=== PATIENT | male | born 1960 | race Caucasian/White ===

== ENCOUNTER 2025-02-08 15:19 | Inpatient (IN) | payer SELFPAY ==
[2025-02-08 15:22] VITALS: BP 141/92; PULSE 71; RESP 17; TEMP 36.6; O2SAT 98
--- NOTE | 2025-02-08 15:23 | ED.C_ITS ---
HPI - Psych 2 General: Chief Complaint: Psychiatric Symptoms Stated Complaint: 96 Time Seen by Provider: 02/08/25 15:21 Source: patient and police Limitations: no limitations History of Present Illness: 64-year-old male is here with police und er 96-hour hold patient had made a suicide attempt he had got a gun of his girlfriend and taken the gun away from him. He stated he wanted to shoot himself to his girlfriend she fell out and I 6-hour paperwork. Patient here is being avoidant will give me much history. Associated symptoms: Reports depression and suicidal ideation Related Data Allergies Allergy/AdvReac Type Severity Reaction Status Date / Time No Known Allergies Allergy Verified 02/08/25 15:30 Review of Systems 2 Const: Denies: fever(s), chills, body aches or change in appetite ENMT: Denies: throat pain or dental pain Card: Denies: chest pain Resp: Denies: dyspnea GI: Denies: abdominal pain, nausea, vomiting or diarrhea Musc: Denies: neck pain or back pain Skin/Breast: Denies: rash Neuro: Denies: headache(s) Psych: Reports: depression and suicidal ideation Physical Exam 2 Const: COMMON NORMALS: no acute distress, patient oriented x3 and healthy appearing HENMT: COMMON NORMALS: normocephalic and atraumatic HEAD & SCALP: n ormocephalic and atraumatic Eye: COMMON NORMALS: conjunctivae normal CONJUNCTIVA: Yes conjunctivae normal Chest: COMMONS NORMALS: normal inspection of the chest Resp: COMMON NORMALS: normal respiratory effort Cardio: COMMON NORMALS: regular rate RATE: regular rate Extremity: COMMON NORMALS: normal to inspection and full ROM Neuro: COMMON NORMALS: patient oriented x3, moves all extremities and no focal motor deficits Psych: COMMON NORMALS: mental status grossly normal and cooperative MOOD & AFFECT: Yes depressed mood THOUGHT CONTENT: Yes Suicidality present Skin: COMMON NORMALS: no rashes or lesions noted and no wounds GENERAL SKIN EXAM: no rashes or lesions noted Course 2 Vital Signs: Vital signs: Vital Signs Temperature 97.8 F 02/08/25 15:22 Pulse Rate 71 02/08/25 15:22 Respiratory Rate 17 02/08/25 15:22 Blood Pressure 141/92 02/08/25 15:22 Pulse Oximetry 98 02/08/25 15:22 Oxygen Delivery Me thod Room Air 02/08/25 15:22 MDM - Psych Medical Decision Making Patient presents from a 96-hour hold for suicidal ideations he is medically cleared I spoke to psychiatrist will admit here. Medical Records I reviewed the patient's medical records. Lab Data I reviewed the patient's lab results. 02/08/25 15:31 02/08/25 15:31 Laboratory Results WBC 8.80 10^3/uL (3.29-11.43) 02/08/25 15:31 RBC 5.51 10^6/uL (3.85-5.65) 02/08/25 15:31 Hgb 15.60 g/dL (11.27-16.99) 02/08/25 15:31 Hct 46.5 % (37-53) 02/08/25 15:31 MCV 84.4 fl (82-101) 02/08/25 15:31 MCH 28.3 pg (27-33) 02/08/25 15: MCHC 33.5 g/dL (30-55) 02/08/25 15:31 RDW 16.6 % (12.1-15.1) H 02/08/25 15:31 Plt Count 289 10^3/cmm (157-399) 02/08/25 15:31 MPV 10.0 fL (7.4-10.4) 02/08/25 15:31 Neut % (Auto) 50.7 % 02/08/25 15:31 Lymph % (Auto) 35.1 % 02/08/25 15:31 Russell % (Auto) 8.1 % 02/08/25 15:31 Eos % (Auto) 4.4 % 02/08/25 15:31 Baso % (Auto) 1.5 % 02/08/25 15:31 Neut # (Auto) 4.46 10^3/uL (1.8-7.7) 02/08/25 15:31 Lymph # (Auto) 3.1 10^3/uL (0.8-4.8) 02/08/25 15:31 Russell # (Auto) 0.7 10^3/uL (0.2-0.9) 02/08/25 15:31 Eos # (Auto) 0.4 10^3/uL (0.0-0.8) 02/08/25 15:31 Baso # (Auto) 0.1 10^3/uL (0.0-0.1) 02/08/25 15:31 Nucleated RBC % (auto) 0 % 02/08/25 15:31 Nucleated RBCs # 0.0 /100WBC 02/08/25 15:31 Sodium 135 mmol/L (136-145) L 02/08/25 15:31 Potassium 4.3 mmol/L (3.5-5.1) 02/08/25 15:31 Chloride 101 mmol/L (98-107) 02/08/25 15:31 Carbon Dioxide 23 mmol/L (22-29) 02/08/25 15:31 Anion Gap 15.3 (5-19) 02/08/25 15:31 BUN 8 mg/dL (8-23) 02/08/25 15:31 Creatinine 0.6 mg/dL (0.7-1.2) L 02/08/25 15:31 GFR Calculation 136.1 mL/min (90-130) H 02/08/25 15:31 Glucose 93 mg/dL (65-115) 02/08/25 15:31 Calculated Osmolality 278 mOsm/kg (285-295) L 02/08/25 15:31 Calcium 9.4 mg/dL (8.5-10.5) 02/08/25 15:31 Total Bilirubin 0.4 mg/dL (0.15-1.2) 02/08/25 15:31 AST 17 U/L (0-40) 02/08/25 15:31 ALT 15 U/L (0-41) 02/08/25 15:31 Alkaline Phosphatase 84 U/L (40-130) 02/08/25 15:31 Total Protein 7.6 g/dL (6.6-8.7) 02/08/25 15:31 Albumin 4.2 g/dL (3.5-5.2) 02/08/25 15: Globulin 3.4 g/dL (1.3-4.6) 02/08/25 15:31 Salicylates < 0.3 mg/dL (3-10) L 02/08/25 15:31 Acetaminophen < 5.0 ug/mL (10-30) L 02/08/25 15:31 Ethyl Alcohol < 10 mg/dL (0-10) 02/08/25 15:31 All radiology interpretation(s) finalized by discharge Discharge Plan Discharge Patient Disposition: Admitted As Inpatient Clinical Impression: Suicidal ideation Condition: Stable Coding Level of Care Code ED Assistant Golf Course Superintendent for Amandeep Vital
--- NOTE | 2025-02-08 15:23 | W.ED.PSYCHS ---
HPI - Psych General: Chief Complaint: Psychiatric Symptoms Stated Complaint: 96 Time Seen by Provider: 02/08/25 15:21 Source: patient and police Limitations: no limitations History of Present Illness: 64-year-old male is here with police under 96-hour hold patient had made a suicide attempt he had got a gun of his girlfriend and taken the gun away from him. He stated he wanted to shoot himself to his girlfriend she fell out and I 6-hour paperwork. Patient here is being avoidant will give me much history. Associated symptoms: Reports depression and suicidal ideation Related Data Allergies Allergy/AdvReac Type Severity Reaction Status Date / Time No Known Allergies Allergy Verified 02/08/25 15:30 Review of Systems Const: Denies: fever(s), chills, body aches or change in appetite ENMT: Denies: throat pain or dental pain Card: Denies: chest pain Resp: Denies: dyspnea GI: Denies: abdominal pain, nausea, vomiting or diarrhea Musc: Denies: neck pain or back pain Skin/Breast: Denies: rash Neuro: Denies: headache(s) Psych: Reports: depression and suicidal ideation Physical Exam Const: COMMON NORMALS: no acute distress, patient oriented x3 and healthy appearing HENMT: COMMON NORMALS: normocephalic and atraumatic HEAD & SCALP: normocephalic and atraumatic Eye: COMMON NORMALS: conjunctivae normal CONJUNCTIVA: Yes conjunctivae normal Chest: COMMONS NORMALS: normal inspection of the chest Resp: COMMON NORMALS: normal respiratory effort Cardio: COMMON NORMALS: regular rate RATE: regular rate Extremity: COMMON NORMALS: normal to inspection and full ROM Neuro: COMMON NORMALS: patient oriented x3, moves all extremities and no focal motor deficits Psych: COMMON NORMALS: mental status grossly normal and cooperative MOOD & AFFECT: Yes depressed mood THOUGHT CONTENT: Yes Suicidality present Skin: COMMON NORMALS: no rashes or lesions noted and no wounds GENERAL SKIN EXAM: no rashes or lesions noted Course Vital Signs: Vital signs: Vital Signs Temperature 97.8 F 02/08/25 15:22 Pulse Rate 71 02/08/25 15:22 Respiratory Rate 17 02/08/25 15:22 Blood Pressure 141/92 02/08/25 15:22 Pulse Oximetry 98 02/08/25 15:22 Oxygen Delivery Me thod Room Air 02/08/25 15:22 MDM - Psych Medical Decision Making Patient presents from a 96-hour hold for suicidal ideations he is medically cleared I spoke to psychiatrist will admit here. Medical Records I reviewed the patient's medical records. Lab Data I reviewed the patient's lab results. 02/08/25 15:31 02/08/25 15:31 Laboratory Results WBC 8.80 10^3/uL (3.29-11.43) 02/08/25 15: RBC 5.51 10^6/uL (3.85-5.65) 02/08/25 15: Hgb 15.60 g/dL (11.27-16.99) 02/08/25 15: Hct 46.5 % (37-53) 02/08/25 15: MCV 84.4 fl (82-101) 02/08/25 15: MCH 28.3 pg (27-33) 02/08/25 15: MCHC 33.5 g/dL (30-55) 02/08/25 15: RDW 16.6 % (12.1-15.1) H 02/08/25 15: Plt Count 289 10^3/cmm (157-399) 02/08/25 15: MPV 10.0 fL (7.4-10.4) 02/08/25 15: Neut % (Auto) 50.7 % 02/08/25 15: Lymph % (Auto) 35.1 % 02/08/25 15: Eagle % (Auto) 8.1 % 02/08/25 15: Eos % (Auto) 4.4 % 02/08/25 15:31 Baso % (Auto) 1.5 % 02/08/25 15:31 Neut # (Auto) 4.46 10^3/uL (1.8-7.7) 02/08/25 15:31 Lymph # (Auto) 3.1 10^3/uL (0.8-4.8) 02/08/25 15:31 Eagle # (Auto) 0.7 10^3/uL (0.2-0.9) 02/08/25 15: Eos # (Auto) 0.4 10^3/uL (0.0-0.8) 02/08/25 15:31 Baso # (Auto) 0.1 10^3/uL (0.0-0.1) 02/08/25 15: Nucleated RBC % (auto) 0 % 02/08/25 15: Nucleated RBCs # 0.0 /100WBC 02/08/25 15:31 Sodium 135 mmol/L (136-145) L 02/08/25 15: Potassium 4.3 mmol/L (3.5-5.1) 02/08/25 15: Chloride 101 mmol/L (98-107) 02/08/25 15: Carbon Dioxide 23 mmol/L (22-29) 02/08/25 15: Anion Gap 15.3 (5-19) 02/08/25 15: BUN 8 mg/dL (8-23) 02/08/25 15: Creatinine 0.6 mg/dL (0.7-1.2) L 02/08/25 15:31 GFR Calculation 136.1 mL/min (90-130) H 02/08/25 15: Glucose 93 mg/dL (65-115) 02/08/25 15: Calculated Osmolality 278 mOsm/kg (285-295) L 02/08/25 15: Calcium 9.4 mg/dL (8.5-10.5) 02/08/25 15: Total Bilirubin 0.4 mg/dL (0.15-1.2) 02/08/25 15:31 AST 17 U/L (0-40) 02/08/25 15: ALT 15 U/L (0-41) 02/08/25 15:31 Alkaline Phosphatase 84 U/L (40-130) 02/08/25 15:31 Total Protein 7.6 g/dL (6.6-8.7) 02/08/25 15: Albumin 4.2 g/dL (3.5-5.2) 02/08/25 15: Globulin 3.4 g/dL (1.3-4.6) 02/08/25 15:31 Salicylates < 0.3 mg/dL (3-10) L 02/08/25 15:31 Acetaminophen < 5.0 ug/mL (10-30) L 02/08/25 15:31 Ethyl Alcohol < 10 mg/dL (0-10) 02/08/25 15:31 All radiology interpretation(s) finalized by discharge Discharge Plan Discharge Patient Disposition: Admitted As Inpatient Clinical Impression: Suicidal ideation Condition: Stable Coding Level of Care Code ED Erosion Control Coordinator for Amandeep Vital
[2025-02-08 15:37] LABS: Hematocrit 46.5 % (37-53); Hemoglobin 15.60 g/dL (11.27-16.99); Mean Corpuscular HGB Conc 33.5 g/dL (30-55); Mean Corpuscular Hemoglobin 28.3 pg (27-33); Mean Corpuscular Volume 84.4 fl (82-101); Nucleated Red Blood Cells % 0 %; Platelet Count 289 10^3/cmm (157-399); Red Blood Count 5.51 10^6/uL (3.85-5.65); White Blood Count 8.80 10^3/uL (3.29-11.43)
[2025-02-08 15:58] LABS: Alanine Aminotransferase 15 U/L (0-41); Albumin Level 4.2 g/dL (3.5-5.2); Alkaline Phosphatase 84 U/L (40-130); Anion Gap 15.3 (5-19); Aspartate Amino Transferase 17 U/L (0-40); Blood Urea Nitrogen 8 mg/dL (8-23); Calcium 9.4 mg/dL (8.5-10.5); Carbon Dioxide 23 mmol/L (22-29); Chloride 101 mmol/L (98-107); Globulin 3.4 g/dL (1.3-4.6); Glucose 93 mg/dL (65-115); Osmolality Calculated 278 mOsm/kg (285-295); Potassium 4.3 mmol/L (3.5-5.1); Sodium 135 mmol/L (136-145); Total Protein 7.6 g/dL (6.6-8.7)
[2025-02-08 16:05] LABS: Acetaminophen < 5.0 ug/mL (10-30); Alcohol Level < 10 mg/dL (0-10); Creatinine Clr Calc Pharmacy 123.3447; Salicylate < 0.3 mg/dL (3-10)
[2025-02-08 16:17] VITALS: BP 126/83; PULSE 72; O2SAT 97
[2025-02-08 16:21] VITALS: BP 133/85; PULSE 71; RESP 17; TEMP 37.1; O2SAT 98
--- NOTE | 2025-02-08 16:28 | PC.NURSE ---
96 hr rights reviewed with pt @0271 with assistance of [facility] security officers Lashaun and Ishmael Johnson. All education reviewed at this time. Pt verbalized understanding to hold parameters. Pt copy was provided to pt. No further needs
[2025-02-08 16:44] LABS: PCP Screen Urine Negative (Negative)
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
--- NOTE | 2025-02-08 17:35 | PC.NURSE ---
called and spoke with carina pt significant other per verbal consent from patient in regards to pt current medicaition prescriptions. Carina stated she [facility] because she had left his medication and current list with them this morning. stated she would call back to give after calling the.
[2025-02-08] MEDS: metoprolol succinate ER (24 HR) 50 mg Tablet PO (20:12)
[2025-02-08 22:00] VITALS: BP 134/90; PULSE 81; RESP 17; TEMP 36.4; O2SAT 97
[2025-02-09 06:00] VITALS: BP 128/90; PULSE 74; RESP 20; TEMP 36.4; O2SAT 98
[2025-02-09] MEDS: metoprolol succinate ER (24 HR) 50 mg Tablet PO (08:10)
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
[2025-02-09 13:48] VITALS: BP 138/91; PULSE 75; RESP 16; TEMP 36.4; O2SAT 99
[2025-02-09 14:45] VITALS: BP 138/91; PULSE 75; RESP 16; TEMP 36.4; O2SAT 99
== END 2025-02-09 15:59 | disposition home or self-care (01) | DRG 881 ==
LOC: ER 15:26 → NP 16:08
PROVIDERS: Admitting Provider Psychiatry & Neurology Psychiatry; Emergency Provider Emergency Medicine; Visit Provider Psychiatry & Neurology Psychiatry
DX: F43.21 Adjustment disorder with depressed mood (principal); R45.851 Suicidal ideations; I10 Essential (primary) hypertension; G40.909 Epilepsy, unspecified, not intractable, without status epilepticus; E78.00 Pure hypercholesterolemia, unspecified; K21.9 Gastro-esophageal reflux disease without esophagitis; F10.10 Alcohol abuse, uncomplicated; I25.2 Old myocardial infarction; Z79.82 Long term (current) use of aspirin; Z86.73 Personal history of transient ischemic attack (TIA), and cerebral infarction without residual deficits; Z95.5 Presence of coronary angioplasty implant and graft; Z81.8 Family history of other mental and behavioral disorders; Z81.1 Family history of alcohol abuse and dependence
CPT/HCPCS: 36415; 80053; 80306; 80307; 85025; 97165; 99285; J9999